=== PATIENT | male | born 1980 | race Caucasian/White ===

== ENCOUNTER 2022-10-18 20:00 | Emergency (ER) | payer OTHER, SELFPAY ==
--- NOTE | ~2022-10-18 | XR_ITS ---
EXAMINATION: XR chest 2V DATE: 10/18/2022 20:27 INDICATION: Left-sided chest pain TECHNIQUE: PA and lateral views of the chest were obtained. COMPARISON: None FINDINGS: The lungs are clear with no focal airspace opacities, pulmonary edema, pleural effusion or pneumothor ax. The cardiomediastinal silhouette is normal. Visualized bones and soft tissues are unremarkable. IMPRESSION: 1. No acute cardiopulmonary disease. Reviewed, dictated and finalized at location A.
--- NOTE | 2022-10-18 20:05 | ECG_ITS ---
Measurements Intervals [place] Rate: 58 P: 53 MS: 130 QRS: 15 QRSD: 138 T: -5 QT: 405 QTc: 398 Interpretive Statements SINUS BRADYCARDIA RIGHT BUNDLE BRANCH BLOCK [120+ ms QRS DURATION, UPRIGHT V1, 40+ ms S IN I/aVL/V4/V5/V6] NO PREVIOUS ECG AVAILABLE FOR COMPARISON Electronically Signed On 10-19-2022 11:35:34 CDT by Hao Aranda M.D.
[2022-10-18 20:14] VITALS: BP 115/68; PULSE 56; RESP 17; TEMP 36.9; O2SAT 98
[2022-10-18 20:23] LABS: Basophils Percent Auto 0.2 % (0.2-1.2); Eosinophils Percent Auto 0.2 % (0-4.4); Hematocrit 46.4 % (42.0-52.0); Hemoglobin 15.7 g/dL (14.0-18.0); Immature Granulocyte Absolute 0.06 K/mm3 (0.00-0.031); Immature Granulocyte Percent A 0.5 % (0-0.5); Lymphocytes Absolute Auto 1.19 K/mm3 (0.9-3.2); Lymphocytes Percent Auto 9.5 % (18.3-44.2); Mean Corpuscular HGB Conc 33.8 g/dl (32-36); Mean Corpuscular Hemoglobin 31.2 pg (26-34); Mean Corpuscular Volume 92.1 fl (80-100); Mean Platelet Volume 11.4 fl (7.4-10.4); Monocytes Absolute Auto 0.7 K/mm3 (0.1-0.6); Monocytes Percent Auto 5.6 % (2.6-8.5); Neutrophils Absolute Auto 10.5 K/mm3 (1.3-6.7); Platelet Count Result 231 k/mm3 (150-375); Red Blood Count 5.04 M/mm3 (4.6-6.20); White Blood Count 12.5 K/mm3 (4.5-10.0)
[2022-10-18 20:32] LABS: Prothrombin Time 13.6 Seconds (11.1-14.7)
[2022-10-18 20:33] LABS: Partial Thromboplastin Time 24.6 SECONDS (22.3-36.8)
[2022-10-18 20:34] LABS: Alanine Aminotransferase 27 U/L (6-50); Albumin Level 4.9 g/dL (3.5-5.1); Alkaline Phosphatase 86 U/L (38-126); Anion Gap 13 mmol/L (8-16); Aspartate Amino Transferase 39 U/L (17-59); Bilirubin,Total 0.5 mg/dL (0.2-1.3); Blood Urea Nitrogen 28 mg/dL (9-20); Calcium 9.4 mg/dL (8.4-10.2); Carbon Dioxide 23 mmol/L (22-30); Chloride 102 mmol/L (98-107); Estimated CRCL calculation 102 ml/min; Estimated Glomerular Filt Rate > 60; Glucose 128 mg/dL (65-110); Lipase 314 U/L (23-300); Potassium 4.4 mmol/L (3.4-5.0); Sodium 138 mmol/L (137-145)
[2022-10-18 20:46] LABS: Troponin I < 0.012 ng/mL (0.000-0.034)
[2022-10-19 00:30] VITALS: PULSE 50
[2022-10-19 00:33] VITALS: O2SAT 99
[2022-10-19 01:05] LABS: Troponin I < 0.012 ng/mL (0.000-0.034)
--- NOTE | 2022-10-19 01:13 | ED.CHESTPAIN ---
HPI - Chest Pain General Chief Complaint: Chest Pain Stated Complaint: TIGHTNESS IN CHEST AND BACK, CP Time Seen by Provider: 10/19/22 00:27 History of Present Illness HPI narrative: This is a 42-year-old male with no significant past medical history, who presents to the emergency department complaining of chest tightness beginning approximately 1 hour prior to arrival. The patient states he was in his usual state of health, seated when he felt a squeezing chest sensation, rated 5/10 with some radiation to the left arm. He denies associated nausea, diaphoresis, shortness of breath or vomiting. He has not felt pain like this before. The pain resolved completely on its own and has not reoccurred. Related Data Allergies Allergy/AdvReac Type Severity Reaction Status Date / Time No Known Allergies Allergy Verified 10/18/22 23:56 Review of Systems Review of Systems: CONSTITUTIONAL: Denies fever, chills, or sweats. CARDIOVASCULAR: Chest pain now resolved denies palpitations, or edema. RESPIRATORY: Denies cough or dyspnea. GASTROINTESTINAL: Denies abdominal pain, nausea, vomiting, or diarrhea. GENITOURINARY: Denies dysuria or hematuria. SKIN: Denies rash or itching. MUSCULOSKELETAL: Denies back pain, joint pain, or myalgia. NEUROLOGIC: Denies headache, numbness, dizziness, or weakness. PSYCHIATRIC: Denies anxiety or depression. PMFSH Past Medical History Medical History Depression Surgical History Surgical History No significant past surgical history Social History Social History Smoking status: Never smoker Alcohol intake: never Substance use: never Exam Narrative: GENERAL: Well-developed, well-nourished, and in no acute distress. HEAD: Normocephalic, atraumatic. EYES: PERRLA and EOMI. CHEST: Clear to auscultation. No respiratory distress. No wheezes rales or rhonchi HEART: Bradycardic with regular rhythm. No murmur heard. Normal peripheral pulses. ABDOMEN: Soft, nontender, nondistended, normal active bowel sounds. EXTREMITIES: Normal range of motion. No edema. SKIN: Warm, dry, no rash. NEURO: Alert and oriented x3. Moving all 4 limbs purposefully. PSYCH: Normal mood and affect. Course Course Emergency Course: 01:13 - White blood cell count elevated at 12.5, CBC otherwise unremarkable. Chemistries unremarkable. Chest x-ray unremarkable. EKG demonstrates right bundle branch block but is not concerning for ischemic changes. Initial troponin negative. Heart score 2. Repeat troponin negative. Will discharge. Discussed return and emergency precautions including signs/symptoms of ACS and respiratory distress. The patient voiced understanding and is comfortable with the plan. All questions answered to his satisfaction. Vital Signs Vital signs: Vital Signs Temperature 98.5 F 10/18/22 20:14 Pulse Rate 56 L 10/18/22 20:14 Respiratory Rate 17 10/18/22 20:14 Blood Pressure 115/68 10/18/22 20:14 Pulse Oximetry 98 10/18/22 20:14 Oxygen Delivery Room Air 10/18/22 20:14 Temperature 98.5 F 10/18/22 20:14 Pulse Rate 53 L 10/19/22 01:35 Respiratory Rate 16 10/19/22 01:35 Blood Pressure 115/88 10/19/22 01:35 Pulse Oximetry 98 10/19/22 01:35 Oxygen Delivery Room Air 10/19/22 00:33 MDM - Chest Pain MDM Narrative Medical decision making narrative: Plan: Labs, EKG, imaging, reassess Differential Diagnosis Differential diagnosis: Likely other (ACS, costochondritis, muscle spasm, intrathoracic mass, pneumothorax, metabolic abnormality, other) Lab Data 10/18/22 20:15 10/18/22 20:15 Labs: Lab Results 10/18/22 10/19/22 Range/Units 20:15 00:38 WBC 12.5 H (4.5-10.0) K/mm3 RBC 5.04 (4.6-6.20) M/mm3 Hgb 15.7 (14.0-18.0) g/dL Hct 46.4 (42.0-52.
[2022-10-19 01:35] VITALS: BP 115/88; PULSE 53; RESP 16; O2SAT 98
== END 2022-10-19 01:35 | disposition home or self-care (01) ==
PROVIDERS: Emergency Medicine; Emergency Provider Preventive Medicine Aerospace Medicine
DX: R07.89 Other chest pain (principal); R00.1 Bradycardia, unspecified; I45.10 Unspecified right bundle-branch block
CPT/HCPCS: 36415; 71046; 80053; 83690; 84484; 85025; 85610; 85730; 93005; 99284

== ENCOUNTER 2023-12-16 19:46 | Emergency (ER) | payer OTHER, SELFPAY ==
--- NOTE | ~2023-12-16 | XR_ITS ---
XR chest 2V Ordering provider: Mary Velazquez PA-C History: 43 years Male with . CP, HEART PALPITATIONS . Comparison: October 18, 2022 FINDINGS: MEDIASTINUM: The cardiac silhouette is not enlarged. LUNGS: No infiltrates, effusions or pneumothorax. OTHER: No free air under the diaphragm. IMPRESSION: No acute cardiopulmonary pathology Reviewed, dictated and finalized at location A.
--- NOTE | 2023-12-16 19:51 | ECG_ITS ---
Test Date: 2023-12-16 19:58:27 Measurements Intervals [place] Rate: 106 P: 53 TN: 128 QRS: 24 QRSD: 129 T: -5 QT: 342 QTc: 456 Interpretive Statements SINUS TACHYCARDIA RIGHT BUNDLE BRANCH BLOCK [120+ ms QRS DURATION, UPRIGHT V1, 40+ ms S IN I/aVL/V4/V5/V6] NONSPECIFIC T-WAVE ABNORMALITY ABNORMAL ECG ] No previous ECG available for comparison Electronically Signed On 12-17-2023 08:58:52 CDT by Markus Hwang M.D.
[2023-12-16 19:59] VITALS: BP 135/60; PULSE 96; RESP 14; TEMP 36.4; O2SAT 100
[2023-12-16 20:38] VITALS: BP 126/73; PULSE 72; RESP 18; O2SAT 100
[2023-12-16] MEDS: ASPIRIN 81 MG CHEWABLE TABLET 324 MG PO (20:59)
[2023-12-16 21:24] LABS: Basophils Percent Auto 0.3 % (0.2-1.2); Eosinophils Absolute Auto 0.1 K/mm3 (0-0.3); Eosinophils Percent Auto 0.7 % (0-4.4); Hematocrit 41.7 % (42.0-52.0); Immature Granulocyte Absolute 0.05 K/mm3 (0.00-0.031); Immature Granulocyte Percent A 0.4 % (0-0.5); Lymphocytes Absolute Auto 0.79 K/mm3 (0.9-3.2); Mean Corpuscular HGB Conc 33.6 g/dl (32-36); Mean Corpuscular Hemoglobin 30.7 pg (26-34); Mean Corpuscular Volume 91.4 fl (80-100); Monocytes Absolute Auto 0.6 K/mm3 (0.1-0.6); Monocytes Percent Auto 5.7 % (2.6-8.5); Neutrophils Absolute Auto 9.7 K/mm3 (1.3-6.7); Neutrophils Percent Auto 85.9 % (45.5-73.1); Platelet Count Result 195 k/mm3 (150-375); Red Blood Count 4.56 M/mm3 (4.6-6.20); Red Cell Distribution Width 11.6 % (11.5-14.5); White Blood Count 11.3 K/mm3 (4.5-10.0)
[2023-12-16 21:35] LABS: Prothrombin Time 13.9 Seconds (11.1-14.7)
[2023-12-16 21:36] LABS: Partial Thromboplastin Time 25.7 Seconds (22.3-36.8)
[2023-12-16 21:40] LABS: Alanine Aminotransferase 18 U/L (6-50); Alkaline Phosphatase 68 U/L (38-126); Anion Gap 5 mmol/L (4-12); Aspartate Amino Transferase 35 U/L (17-59); Bilirubin,Total 0.4 mg/dL (0.2-1.3); Blood Urea Nitrogen 25 mg/dL (9-20); Calcium 8.5 mg/dL (8.4-10.2); Carbon Dioxide 28 mmol/L (22-30); Chloride 103 mmol/L (98-107); Estimated CRCL calculation 84 ml/min; Estimated Glomerular Filt Rate > 60; Glucose 87 mg/dL (65-110); Lipase 80 U/L (23-300); Potassium 3.9 mmol/L (3.4-5.0); Sodium 136 mmol/L (137-145)
[2023-12-16 21:49] LABS: Troponin I < 0.012 ng/mL (0.000-0.034)
[2023-12-16 22:03] VITALS: BP 112/77; PULSE 64; RESP 14; TEMP 36.7; O2SAT 97
[2023-12-16] MEDS: SODIUM CHLORIDE 0.9% IV 1,000 ML 999 ML IV CONT (22:03)
--- NOTE | 2023-12-16 22:13 | ED.ARRPALP ---
HPI - Arrhythmia/Palpitations General Chief Complaint: Arrhythmia/Palpitations Stated Complaint: palpitations Time Seen by Provider: 12/16/23 20:54 Source: patient Mode of arrival: ambulatory Limitations: no limitations History of Present Illness HPI narrative: This is a 43 year old male that presents to the ER for chest pain. Ongoing intermittently over the last couple of weeks. Reports dull achy, pain. Intermittently more severe. Worse with stress. He had a panic attack tonight and his pain worsened which prompted him to be seen. Denies shortness of breath or lower extremity edema. Related Data Allergies Allergy/AdvReac Type Severity Reaction Status Date / Time No Known Allergies Allergy Verified 10/18/22 23:56 Review of Systems Review of Systems: CONSTITUTIONAL: Denies fever CARDIOVASCULAR: Reports chest pain, palpitations. Denies edema. RESPIRATORY: Denies dyspnea. All systems reviewed & are unremarkable except as noted in HPI and below PMFSH Past Medical History Medical History (Updated 12/17/23 @ 00:29 by Mary Velazquez PA-C) Depression History of anxiety Surgical History Surgical History No significant past surgical history Social History Social History Smoking status: Never smoker Alcohol intake: never Substance use: never Exam Narrative: GENERAL: Well-appearing, well-nourished, and in no acute distress. HEAD: Normocephalic, atraumatic. EYES: EOMI. CHEST: Clear to auscultation. No respiratory distress. No wheezes rales or rhonchi HEART: Regular rate and rhythm. No murmur heard. Normal peripheral pulses. EXTREMITIES: Normal range of motion. No edema. SKIN: Warm, dry, no rash. NEURO: No focal deficits. Alert and oriented x3. PSYCH: Normal mood and affect Course Course Emergency Course: Patient updated on his workup and agrees with plan of care Vital Signs Vital signs: Vital Signs Temperature 97.5 F L 12/16/23 19:59 Pulse Rate 96 12/16/23 19:59 Respiratory Rate 14 12/16/23 19:59 Blood Pressure 135/60 12/16/23 19:59 Pulse Oximetry 100 12/16/23 19:59 Oxygen Delivery Room Air 12/16/23 19:59 Temperature 98.0 F 12/16/23 22:03 Pulse Rate 67 12/16/23 22:16 Respiratory Rate 15 12/16/23 22:16 Blood Pressure 107/71 12/16/23 22:16 Pulse Oximetry 98 12/16/23 22:16 Oxygen Delivery Room Air 12/16/23 19:59 MDM - Arrhythmia/Palpitations MDM Narrative Medical decision making narrative: patient presents to the emergency department for intermittent episodes of chest pain ongoing over the last couple of weeks. His vitals are stable. CBC with mild leukocytosis to 11.3. Metabolic panel without concerning findings. EKG without acute changes compared to his previous EKG. Baseline and 3 hour troponin are negative. Chest x-ray without acute cardiopulmonary abnormality. His heart score is 1. Patient was updated on his workup and agrees with plan of care. He is to follow up with primary provider. He was given warnings to return to the ER Differential Diagnosis Differential diagnosis: Likely palpitations, anxiety, sinus tachycardia, artial fibrillation, artial flutter and ventricular premature beats Lab Data Attestation: I reviewed the patient's lab results. 12/16/23 21:04 12/16/23 21:04 Labs: Lab Results 12/16/23 12/16/23 Range/Units 21:04 23:53 WBC 11.3 H (4.5-10.0) K/mm3 RBC 4.56 L (4.6-6.20) M/mm3 Hgb 14.0 (14.0-18.0) g/dL Hct 41.7 L (42.0-52.0) % MCV 91.4 (80-100) fl MCH 30.7 (26-34) pg MCHC 33.6 (32-36) g/dl RDW 11.6 (11.5-14.5) % Plt Count 195 (150-375) k/mm3 MPV 11.0 H (7.4-10.4) fl Immature Gran % (Auto) 0.4 (0-0.5) % Neut % (Auto) 85.9 H (45.5-73.1) % Lymph % (Auto) 7.0 L (18.3-44.2) % [place] % (Auto) 5.7 (2.6-8.5) % Eos % (Au
[2023-12-16 22:16] VITALS: BP 107/71; PULSE 67; RESP 15; O2SAT 98
[2023-12-17 00:24] LABS: Troponin I < 0.012 ng/mL (0.000-0.034)
== END 2023-12-17 00:53 | disposition home or self-care (01) ==
PROVIDERS: Emergency Provider Physician Assistant
DX: R07.9 Chest pain, unspecified (principal); F41.9 Anxiety disorder, unspecified; R00.0 Tachycardia, unspecified; I45.10 Unspecified right bundle-branch block
CPT/HCPCS: 36415; 71046; 80053; 83690; 84484; 85025; 85610; 85730; 93005; 96360; 99284; A9270; J7030